=== PATIENT | female | born 2000 | race Asian ===

== ENCOUNTER 2024-04-14 06:31 | Outpatient (REF) | payer OTHER, SELFPAY ==
--- NOTE | ~2024-04-14 | US_ITS ---
EXAMINATION: ULTRASOUND LEFT LOWER EXTREMITY CLINICAL INFORMATION: Left lower extremity lump in the infrapatellar region COMPARISON: None available. TECHNIQUE: High frequency linear ultrasound transducer was used to examine the area of clinical concern left lower extremity. The contralateral right extremity was studied for comparison. FINDINGS: No abnormalities detected. No masses or fluid collections are seen. There is some mild skin thickening noted. US/US extremity nonvascular IMPRESSION: No abnormality is seen. Electronically signed by: Darwin Greene MD 04/14/2024 02:37 PM EDT
== END 2024-04-14 06:32 | disposition home or self-care (01) ==
LOC: HO.UMASIMG 06:31
PROVIDERS: Visit Provider Registered Nurse
DX: R22.42 Localized swelling, mass and lump, left lower limb (principal); E03.9 Hypothyroidism, unspecified
CPT/HCPCS: 76882